=== PATIENT | female | born 1985 | race Caucasian/White ===

== ENCOUNTER → 2018-01-04 13:13 | Outpatient (REF) | payer OTHER, MEDICAID, SELFPAY | LOC: LAB 13:13 | PROVIDERS: Visit Provider Family Medicine | DX: Z34.90 Encounter for supervision of normal pregnancy, unspecified, unspecified trimester (principal) | CPT/HCPCS: 87081; 87147 ==

== ENCOUNTER 2018-02-02 09:11 | Outpatient (CLI) | payer OTHER, MEDICAID, SELFPAY ==
--- NOTE | 2018-02-02 | DI.US.S_ITS ---
PROCEDURE: US OB LIMITED INDICATIONS: POST DATES; RUPALI, EFW OUTSIDE/PRIOR DATING DATA: Last menstrual period (LMP): 04/25/2017. LMP-based estimated date of delivery ([place]): 01/30/2018. First dating scan (date and location): 10/08/2017. Estimated date of delivery ([place]) from first dating scan: 01/30/20. TECHNIQUE: Real-time scanning was performed of the fetus, with image documentation. Endovaginal scanning: Not performed COMPARISON: [facility], , OB COMPLETE 14WKS OR MORE, 10/08/2017, 16:12. FINDINGS: A single living intrauterine gestation is present. Presentation: Vertex Placenta: Placental position is anterior, without previa. Amniotic fluid index: 12 .7 cm, normal range is 5-24 cm. heart rate: 124 beats per minute. Maternal cervical canal: Poorly seen Estimated gestational age from initial scan: 40 weeks and 4 days. Estimated gestational age from today's scan: 30 weeks and 0 days Estimated weight: 3476 g (30 percentile]. IMPRESSION: Single intrauterine gestation with estimated gestational age of 40 weeks and 4 days from the initial dating ultrasound. Dictated by: Neptali Hernández M.D. on 02/02/2018 at 10:11 Approved by: Neptali Hernández M.D. on 02/02/2018 at 10:14
== END 2018-02-02 10:00 | disposition home or self-care (01) ==
LOC: LABOR 09:19 → OB 16:39
PROVIDERS: PCP Family Medicine; Visit Provider Family Medicine
DX: Z34.03 Encounter for supervision of normal first pregnancy, third trimester (principal); Z3A.40 40 weeks gestation of pregnancy
CPT/HCPCS: 59025; 76815; G0378; G0379

== ENCOUNTER 2018-02-07 12:55 | Outpatient (CLI) | payer OTHER, MEDICAID, SELFPAY | END 2018-02-07 13:49 | disposition home or self-care (01) | LOC: OB 14:42 | PROVIDERS: PCP Family Medicine; Visit Provider Family Medicine | DX: Z36.9 Encounter for antenatal screening, unspecified (principal) | CPT/HCPCS: 59025; G0378; G0379 ==

== ENCOUNTER 2018-02-08 18:14 | Inpatient (IN) | payer OTHER, MEDICAID, SELFPAY ==
[2018-02-08 19:05] LABS: Urine Amphetamines Negative (Negative); Urine Barbiturates Negative (Negative); Urine Benzodiazepines Negative (Negative); Urine Cocaine Negative (Negative); Urine MDMA Negative (Negative); Urine Methadone Negative (Negative); Urine Methamphetamines Positive (Negative); Urine Morphine/Opi cutoff 2000 Negative (Negative); Urine Oxycodone Negative (Negative); Urine Phencyclidine Negative (Negative); Urine Tetrahydrocannabinol Negative (Negative); Urine Tricyclic Antidepressant Negative (Negative)
[2018-02-08] MEDS: miSOPROStol 25 MCG TABLET VAG (20:10)
[2018-02-08 20:25] LABS: Add Manual Diff / Slide Review NO; Basophils Percent Auto 0.4 % (0-2); Eosinophils Percent Auto 0.7 % (2-4); Hematocrit 35.7 % (36-46); Hemoglobin 12.5 g/dL (12.0-16.0); Lymphocytes Percent Auto 17.5 % (25-40); Mean Corpuscular HGB Conc 34.9 % (30-36); Mean Corpuscular Hemoglobin 30.9 PG (26-34); Mean Corpuscular Volume 88.6 fL (80-100); Monocytes Percent Auto 6.7 % (3-14); Neutrophils Absolute Auto 6400 /uL (3000-5900); Neutrophils Percent Auto 74.7 % (50-75); Platelet Count 166 X10^3/uL (150-400); Red Blood Cell Count 4.03 X10^6/uL (4.0-5.2); Red Cell Distribution Width 15.1 % (11.6-14.8); White Blood Cell Count 8.6 X10^3/uL (4.5-11.0)
[2018-02-08 21:42] LABS: Urine Amphetamines Negative (Negative); Urine Cocaine Negative (Negative); Urine Morphine/Opi cutoff 2000 Negative (Negative); Urine Tetrahydrocannabinol Negative (Negative)
[2018-02-08 21:43] LABS: Urine Barbiturates Negative (Negative); Urine Benzodiazepines Negative (Negative); Urine MDMA Negative (Negative); Urine Methadone Negative (Negative); Urine Methamphetamines Negative (Negative); Urine Oxycodone Negative (Negative); Urine Phencyclidine Negative (Negative); Urine Tricyclic Antidepressant Negative (Negative)
[2018-02-08] MEDS: ZOLPIDEM 5 MG TABLET PO (22:14)
[2018-02-09] MEDS: miSOPROStol 25 MCG TABLET VAG (00:33)
[2018-02-09] MEDS: OXYTOCIN PREMIX 30 UNIT/500 ML PLAST..BAG IV (08:32)
[2018-02-09] MEDS: LACTATED RINGERS 1,000 ML 125 ML IV ×2 (08:32→14:09)
[2018-02-09] MEDS: PENICILLIN G POTASSIUM 5,000,000 UNIT in DEXTROSE 5% IN WATER 250 ML IV (08:32)
--- NOTE | 2018-02-09 08:54 | PM.OBHP.1 ---
OB HPI Date/Time Date of admission: 02/09/18 Date Patient Seen: 02/09/18 Time Patient Seen: 08:54 History of Present Illness Chief complaint: evaluation of labor : 1 Para: 0 Estimated Date of Delivery: 01/30/18 Estimated Gestational Age (weeks): 41 3/e Narrative: Maribel Reynolds is a 32 year old female with EDC of 01/30/[address] Pozo who presents for induction. Patient was brought in last night for Cytotec. Overall has been unremarkable. She transferred care at 22 weeks from [place]. She has long history of anxiety and benzodiazepine addiction. Labor was uncomplicated but she did have a positive narcotics drug screen. [place] to be secondary to Poppy seeds. Was repeated and found to be negative. Patient denies any drug use during this . Has felt very strong about her recovery. Does not have any other complaints. Baby has been active and moving. No leaking fluid no bleeding no pain. Cytotec was placed last night and she has been having contractions. She was closed and is now 2 cm. No other significant change or complaint. Patient had drug screen done yesterday which was initially positive for methamphetamine. Patient denies is actively. Her repeat drug screen was negative. Patient otherwise has felt well. Emotionally doing well. Has had no problems or complaints during this . Estimated weight is 7 lb 11 oz by ultrasound. With Evaluation Evaluation Laboratory results: Laboratory Tests 02/08/18 02/08/18 02/08/18 18:30 20:10 20:10 WBC 8.6 RBC 4.03 Hgb 12.5 Hct 35.7 L MCV 88.6 MCH 30.9 MCHC 34.9 RDW 15.1 H Plt Count 166 Neut % (Auto) 74.7 Lymph % (Auto) 17.5 L [place] % (Auto) 6.7 Eos % (Auto) 0.7 L Baso % (Auto) 0.4 Neut # (Auto) 6400 H Urine Opiates Screen Negative Ur Oxycodone Screen Negative Urine Methadone Screen Negative Ur Barbiturates Screen Negative U Tricyclic Antidepress Negative Ur Phencyclidine Scrn Negative Ur Amphetamines Screen Negative U Methamphetamines Scrn Positive H Ur MDMA Scrn (Ecstasy) Negative U Benzodiazepines Scrn Negative Urine Cocaine Screen Negative U Marijuana (THC) Screen Negative Blood Type O Positive Antibody Screen Negative 02/08/18 20:55 WBC RBC Hgb Hct MCV MCH MCHC RDW Plt Count Neut % (Auto) Lymph % (Auto) [place] % (Auto) Eos % (Auto) Baso % (Auto) Neut # (Auto) Urine Opiates Screen Negative Ur Oxycodone Screen Negative Urine Methadone Screen Negative Ur Barbiturates Screen Negative U Tricyclic Antidepress Negative Ur Phencyclidine Scrn Negative Ur Amphetamines Screen Negative U Methamphetamines Scrn Negative Ur MDMA Scrn (Ecstasy) Negative U Benzodiazepines Scrn Negative Urine Cocaine Screen Negative U Marijuana (THC) Screen Negative Blood Type Antibody Screen [facility] Medical History Anxiety (Acute) Benzodiazepine abuse (Acute) Comment: . Good social support. Denies drug use Meds Home Medications Medication Instructions Recorded Confirmed Type Iron (ferrous sulfate) 1 tab PO DAILY 02/08/18 02/08/18 History PNV #[id number] 1 tab PO DAILY 02/08/18 02/08/18 History ranitidine HCl [Zantac 75] 1 tab PO DAILY 02/08/18 02/08/18 History Allergies Allergy/AdvReac Type Severity Reaction Status Date / Time Naproxen Allergy Mild RASH Uncoded 10/27/17 12:59 Exam Vital Signs (past 8 hours): Alert female in no acute distress. Lungs are clear. Heart regular rate and rhythm. Abdomen is gravid vertex intact. Sterile vaginal exam +1 vertex 2 cm 60% intact extremities without cyanosis clubbing edema Objective Labs Result Diagrams: 02/08/18 20:10 Labs: Laboratory Results - last 24 hr 02/08/18 02/08/18 02/08/18 18:30 20:10 20:10 WBC 8.6 RBC 4.03 Hgb 12.5 Hct 35.7 L MCV 88.6 MCH 30.9 MCHC 34.9 RDW 15.1 H Plt Count 166 Neut % (Auto) 74.7 Lymph % (Auto) 17.5 L [place] % (Auto) 6.7 Eos % (Auto) 0.7 L Baso % (Auto) 0.4 Neut # (Auto) 6400 H Urine Opiates Screen Negative Ur Oxycodone Screen Negative Urine Methadone Screen Negative Ur Barbiturates Screen Negative U Tricyclic Antidepress Negative Ur Phencyclidine Scrn Negative Ur Amphetamines Screen Negative U Methamphetamines Scrn Positive H Ur MDMA Scrn (Ecstasy) Negative U Benzodiazepines Scrn Negative Urine Cocaine Screen Negative U Marijuana (THC) Screen Negative Blood Type O Positive Antibody Screen Negative 02/08/18 20:55 WBC RBC Hgb Hct MCV MCH MCHC RDW Plt Count Neut % (Auto) Lymph % (Auto) [place] % (Auto) Eos % (Auto) Baso % (Auto) Neut # (Auto) Urine Opiates Screen Negative Ur Oxycodone Screen Negative Urine Methadone Screen Negative Ur Barbiturates Screen Negative U Tricyclic Antidepress Negative Ur Phencyclidine Scrn Negative Ur Amphetamines Screen Negative U Methamphetamines Scrn Negative Ur MDMA Scrn (Ecstasy) Negative U Benzodiazepines Scrn Negative Urine Cocaine Screen Negative U Marijuana (THC) Screen Negative Blood Type Antibody Screen Assessment and Plan Plan: Plan: Patient will be admitted and followed. Will try to rupture Pitocin. If unable to get into labor will stop and re-evaluate. Question on drug abuse patient actively denies. Second urine was negative. At this point I do not believe she was actively using but will need to follow. Will consider meconium evaluation for drugs of abuse after . Currently baby looks good. And we seemed to be doing okay. Epidural if needed will follow.
--- NOTE | 2018-02-09 09:01 | P.HPOB_ITS ---
OB HPI Date/Time Date of admission: 02/09/18 Date Patient Seen: 02/09/18 Time Patient Seen: 08:54 History of Present Illness Chief complaint: evaluation of labor : 1 Para: 0 Estimated Date of Delivery: 01/30/18 Estimated Gestational Age (weeks): 41 3/e Narrative: Maribel Reynolds is a 32 year old female with EDC of 01/30/[address] Pozo who presents for induction. Patient was brought in last night for Cytotec. Overall has been unremarkable. She transferred care at 22 weeks from [place]. She has long history of anxiety and benzodiazepine addiction. Labor was uncomplicated but she did have a positive narcotics drug screen. [place] to be secondary to Poppy seeds. Was repeated and found to be negative. Patient denies any drug use during this . Has felt very strong about her recovery. Does not have any other complaints. Baby has been active and moving. No leaking fluid no bleeding no pain. Cytotec was placed last night and she has been having contractions. She was closed and is now 2 cm. No other significant change or complaint. Patient had drug screen done yesterday which was initially positive for methamphetamine. Patient denies is actively. Her repeat drug screen was negative. Patient otherwise has felt well. Emotionally doing well. Has had no problems or complaints during this . Estimated weight is 7 lb 11 oz by ultrasound. With Evaluation Evaluation Laboratory results: Laboratory Tests 02/08/18 02/08/18 02/08/18 18:30 20:10 20:10 WBC 8.6 RBC 4.03 Hgb 12.5 Hct 35.7 L MCV 88.6 MCH 30.9 MCHC 34.9 RDW 15.1 H Plt Count 166 Neut % (Auto) 74.7 Lymph % (Auto) 17.5 L [place] % (Auto) 6.7 Eos % (Auto) 0.7 L Baso % (Auto) 0.4 Neut # (Auto) 6400 H Urine Opiates Screen Negative Ur Oxycodone Screen Negative Urine Methadone Screen Negative Ur Barbiturates Screen Negative U Tricyclic Antidepress Negative Ur Phencyclidine Scrn Negative Ur Amphetamines Screen Negative U Methamphetamines Scrn Positive H Ur MDMA Scrn (Ecstasy) Negative U Benzodiazepines Scrn Negative Urine Cocaine Screen Negative U Marijuana (THC) Screen Negative Blood Type O Positive Antibody Screen Negative 02/08/18 20:55 WBC RBC Hgb Hct MCV MCH MCHC RDW Plt Count Neut % (Auto) Lymph % (Auto) [place] % (Auto) Eos % (Auto) Baso % (Auto) Neut # (Auto) Urine Opiates Screen Negative Ur Oxycodone Screen Negative Urine Methadone Screen Negative Ur Barbiturates Screen Negative U Tricyclic Antidepress Negative Ur Phencyclidine Scrn Negative Ur Amphetamines Screen Negative U Methamphetamines Scrn Negative Ur MDMA Scrn (Ecstasy) Negative U Benzodiazepines Scrn Negative Urine Cocaine Screen Negative U Marijuana (THC) Screen Negative Blood Type Antibody Screen [facility] Medical History Anxiety (Acute) Benzodiazepine abuse (Acute) Comment: . Good social support. Denies drug use Meds Home Medications Medication Instructions Recorded Confirmed Type Iron (ferrous sulfate) 1 tab PO DAILY 02/08/18 02/08/18 History PNV #[id number] [id number] 1 tab PO DAILY 02/08/18 02/08/18 History ranitidine HCl [Zantac 75] 1 tab PO DAILY 02/08/18 02/08/18 History Allergies Allergy/AdvReac Type Severity Reaction Status Date / Time Naproxen Allergy Mild RASH Uncoded 10/27/17 12:59 Exam Vital Signs (past 8 hours): Alert female in no acute distress. Lungs are clear. Heart regular rate and rhythm. Abdomen is gravid vertex intact. Sterile vaginal exam + 1 vertex 2 cm 60% intact extremities without cyanosis clubbing edema Objective Labs Result Diagrams: 02/08/18 20:10 Labs: Laboratory Results - last 24 hr 02/08/18 02/08/18 02/08/18 18:30 20:10 20:10 WBC 8.6 RBC 4.03 Hgb 12.5 Hct 35.7 L MCV 88.6 MCH 30.9 MCHC 34.9 RDW 15.1 H Plt Count 166 Neut % (Auto) 74.7 Lymph % (Auto) 17.5 L [place] % (Auto) 6.7 Eos % (Auto) 0.7 L Baso % (Auto) 0.4 Neut # (Auto) 6400 H Urine Opiates Screen Negative Ur Oxycodone Screen Negative Urine Methadone Screen Negative Ur Barbiturates Screen Negative U Tricyclic Antidepress Negative Ur Phencyclidine Scrn Negative Ur Amphetamines Screen Negative U Methamphetamines Scrn Positive H Ur MDMA Scrn (Ecstasy) Negative U Benzodiazepines Scrn Negative Urine Cocaine Screen Negative U Marijuana (THC) Screen Negative Blood Type O Positive Antibody Screen Negative 02/08/18 20:55 WBC RBC Hgb Hct MCV MCH MCHC RDW Plt Count Neut % (Auto) Lymph % (Auto) [place] % (Auto) Eos % (Auto) Baso % (Auto) Neut # (Auto) Urine Opiates Screen Negative Ur Oxycodone Screen Negative Urine Methadone Screen Negative Ur Barbiturates Screen Negative U Tricyclic Antidepress Negative Ur Phencyclidine Scrn Negative Ur Amphetamines Screen Negative U Methamphetamines Scrn Negative Ur MDMA Scrn (Ecstasy) Negative U Benzodiazepines Scrn Negative Urine Cocaine Screen Negative U Marijuana (THC) Screen Negative Blood Type Antibody Screen Assessment and Plan Plan: Plan: Patient will be admitted and followed. Will try to rupture Pitocin. If unable to get into labor will stop and re-evaluate. Question on drug abuse patient actively denies. Second urine was negative. At this point I do not believe she was actively using but will need to follow. Will consider meconium evaluation for drugs of abuse after . Currently baby looks good. And we seemed to be doing okay. Epidural if needed will follow.
--- NOTE | 2018-02-09 09:09 | PM.OBPNLAB ---
Date/Time Date Patient Seen: 02/09/18 Time Patient Seen: 09:09 Pain Control Pain control: tolerating well Comments: Patient doing well no complaints Pelvic Exam Dilation (cm): 2 Effacement (%): 70 station: 0 Amniotic membrane status: Ruptured Comments: Ruptured with leaking fluid clear Contractions Contraction pattern: Regular Contraction intensity: Moderate Status status: Category l Assessment and Plan Assessment: induction ongoing Plan: continuous present management
[2018-02-09 09:46] VITALS: BP 107/55
[2018-02-09] MEDS: PENICILLIN G POTASSIUM 3,000,000 UNIT/50 ML FROZ.PIGGY 100 UNIT IV ×3 (12:05→20:12)
--- NOTE | 2018-02-09 13:25 | P.PNOB_ITS ---
Date/Time Date Patient Seen: 02/09/18 Time Patient Seen: 13:22 Pain Control Comments: Patient has overall been having increasing pain. Last 10 min or so. Had been previously doing well. Pelvic Exam Dilation (cm): 3 Effacement (%): 80 station: 0 Contractions Pitocin rate (mU/min): 9 Contraction frequency (min): 2 Contraction pattern: Regular Contraction intensity: Moderate Status status: Category l Assessment and Plan Assessment: induction ongoing Plan: continuous present management Comments: The patient was ruptured. On antibiotics. Antibiotics were started an hour before rupture happened. Clear fluid. Seems to be coming more active still in latent phase. Will continue IV therapy. heart monitor is reactive and category 1. Requesting epidural. Anesthesia contacted. Re- evaluate in 2-4 hours.
--- NOTE | 2018-02-09 16:53 | PM.OBPNLAB ---
Date/Time Date Patient Seen: 02/09/18 Time Patient Seen: 16:53 Pain Control Pain control: epidural Comments: Excellent Pelvic Exam Dilation (cm): 4 Effacement (%): 80 station: 0 Amniotic membrane status: Ruptured Contractions Contraction frequency (min): 2 Contraction pattern: Irregular Contraction intensity: Moderate Status status: Category l Assessment and Plan Assessment: induction ongoing Comments: Difficulty picking up the contractions. Patient is comfortable after epidural. IUPC placed. heart monitor looks good. Slow change. Continue duction. Continue antibiotics.
--- NOTE | 2018-02-09 23:30 | PM.OBPNLAB ---
Date/Time Date Patient Seen: 02/09/18 Time Patient Seen: 23:30 Pain Control Pain control: epidural Pelvic Exam Dilation (cm): 10 Effacement (%): 100 station: +2 Contractions Contraction frequency (min): 2 Contraction pattern: Irregular Contraction intensity: Moderate Status status: Category l Assessment and Plan Assessment: active labor Comments: For stage complete. heart monitor has been reactive. Continuing antibiotics. No fever. Overall doing well. For vaginal delivery.
--- NOTE | 2018-02-10 00:42 | PM.NBHP.1 ---
History History Child is a product of a 41 and 3 7 week intrauterine which was uncomplicated. She transferred care at 22 weeks. Had a positive drug screen for narcotics which was felt to be secondary to Poppy seeds. Had it repeated which was negative. Patient had no other complications during the . On presentation might had a positive drug screen for meth although this was repeated and found to be negative. The unclear if this was positive or not. Mom was GBS positive and began on antibiotics. She was ruptured approximately 15 hr. Did not have fever. Otherwise labor was uncomplicated. Child required no resuscitation. No major issues and seems to be well. Social history mother and father . Have good social support here Mother was with some history of anxiety. She had been doing well. Had a history of benzodiazepine use prior to . Time of : 00:04 Gestation: postterm Multiple fetuses: No Mode of delivery: vaginal score (1 min): 8 score (5 min): 9 Complications with delivery: No Nursery Course Maternal RH factor: positive Infant blood type: O Infant RH factor: unknown Direct supriya: unknown Post delivery complications: Reports none Screening screen labs drawn: no Hepatitis B vaccine given: no Exam - Pediatric Vital Signs BP 107/55 L 02/09/18 09:46 General Appearance well appearing Constitutional normal weight HEENT Head: normocephalic and molding Anterior fontanelle: soft Eyes: EOM normal Pupils: bilateral: other (Positive red reflux) Ears Canals: bilateral: extruded PET Nose Nasal mucosa: normal Mouth Lips: normal Oral mucosa: erythematous Tonsils: other (Normal palate no evidence of tongue tie) Additional Exam Additional findings: Neck is supple. No adenopathy. Lungs are clear. Heart's regular rate and rhythm without murmur. Abdomen is soft positive bowel sounds three-vessel cord. No masses or tenderness. Normal genitalia. Normal extremities. Skin is without rash normal capillary refill Objective Labs Result Diagrams: 02/08/18 20:10 Assessment & Plan Plan: Assessment/Plan Narrative: Normal female . Will watch closely for any possible signs of withdrawal. Will check the meconium drug screen but my feeling is that this is probably low risk. Will watch over the next 24 hr routine care otherwise and follow from there.
--- NOTE | 2018-02-10 00:56 | P.PCNOB_ITS ---
Events: Labor Induction Delivery date: 02/10/18 Laceration description: Vaginal - 2nd Degree Delivery repair: vicryl and chromic Estimated blood loss (mL): 300 Anesthesia type: Epidural Complications: None Narrative: Mother was brought in for induction for post dates at 41 and 3 7 weeks. Due to her history abnormal drug screen early in she had a drug screen done which was positive for meth. Patient denies any use repeat urine was negative. Cytotec x2 was given and cervix went to 2 cm. She was 0+ 1 and 70%. After antibiotic was started due to her GBS status she was ruptured with clear fluid. heart monitor throughout all of her stage was category 1. Pitocin was began. Patient made slow change. Had difficulty monitoring contractions and at 3 cm and IUPC was placed. Excellent results. Pitocin was then continued. She slowly over time continued to dilate some more around 2 o' clock she had her epidural placed with excellent results. No further issues and for stage were undertaken patient had relatively rapid 2nd stage with 1 hr of pushing. IUPC and [place] was removed. She delivered vaginal and SCD 0 a over 2nd degree midline tear and periurethral tear superior. No nuchal cord. No shoulder dystocia. Child was delivered with head and bulb suctioned. Shoulder was then delivered and the rest of the baby came easily up onto mom's abdomen. Cord clamped and then cut by father. Cord bloods were obtained. Placenta delivered spontaneous and thyroid 3 vessels. Periurethral tear was repaired with running 4 0 Vicryl subcuticular. Bleeding had stopped. There had been a small vein at the superior aspect which appeared completely resolved. Vaginal mucosa and cervix were evaluated and found to have no tears. Second-degree was repaired with 3 0 Vicryl in usual manner running manner. Mother tolerated well. No anesthesia was required other than epidural. No resuscitation of was required. EBL was 300 cc. Mother and infant were in stable condition.
[2018-02-10] MEDS: PRENATAL VIT,CALC/IRON/FOLIC 1 TABLET 1 TAB PO (10:09)
[2018-02-10] MEDS: DOCUSATE 250 MG CAPSULE PO (10:09)
[2018-02-10] MEDS: IBUPROFEN 600 MG TABLET PO ×2 (10:12→18:37)
[2018-02-11] MEDS: IBUPROFEN 600 MG TABLET PO ×3 (00:54→20:25)
[2018-02-11] MEDS: PRENATAL VIT,CALC/IRON/FOLIC 1 TABLET 1 TAB PO (09:42)
[2018-02-11] MEDS: DOCUSATE 250 MG CAPSULE PO (09:42)
--- NOTE | 2018-02-11 17:46 | PM.CN ---
History of Present Illness Chief complaint: evaluation of labor Reason for consult: Evaluation of mood & anxiety Requesting provider: Rene Mckeon Narrative: CC: ?I?m managing? HOSPITAL COURSE: 32yo F, G1 now P1, admitted 02/09/18 for induction at 41 3/7 wks; vaginal delivery on 02/10/18, no major complications during labor & delivery. is healthy; 8, 9; initial exam WNL. Patient established OB care at 22 weeks, had a positive drug screen for no contacts which was felt to be secondary to Poppy seeds, negative on repeat. Drug screen on admission for induction was positive for meth although repeat was negative. She has denied any substance use. [place] had drug screen, initial was negative and full screen is still pending. COLLATERAL FROM STAFF: Some difficulty and discouragement around this INTERVIEW: I met with patient Maribel and her Ryan. Maribel reports that she is managing ok. She introduces me to her baby girl Noni. She reports some discouragement around breast-feeding, but overall feels that things are going okay so far since delivery. She describes a history of anxiety that can be fairly severe at times. She states she was taking clonazepam for eight years, and that it worked but it became too much of a problem for her. She states she moved several times during this period, and each time she had established with a new provider and went through withdrawal if she missed medications, states that she ultimately felt it was more trouble than it was worth. States that she has been off clonazepam for about a year and a half, stopped prior to . She describes some anxiety during , but states it has been manageable. She has not taken medication for anxiety depression during . She reports a history of depression, severe at times, treated starting in her teenage years. States that medications were helpful at times. She remembers being on Prozac initially as a teen, her parents saying it was helpful. She remembers Wellbutrin being helpful for mood. She notes she has been on Zoloft in the past but does not remember specifics. She has not been on any of these medications lately. No psychotherapy currently, has done some in the past. She denies feeling depressed now. She denies any thoughts about ending her life today, and denies any thoughts about hurting her baby or ending her baby's life. Sleep has been intermittent since delivery, and somewhat irregular with the end of . We discussed the importance of sleep in mood and anxiety. She denies any problematic substance use. She denies any substance use during the . She reports there have been times that she drink more when feeling depressed, but denies this becoming a problem, denies needing treatment for alcohol use or any other substance use. We discussed medications that can be safe in breast-feeding including Zoloft, and that she is active increased risk of depression given her history of depression. We reviewed resources and support for this as outlined above plan below. Both she and her ask insightful questions about treatment, and express appreciation for this information. [facility] Medical History Anxiety (Acute) Benzodiazepine abuse (Acute) Social History Smoking Status: Former smoker Comment: PAST PSYCHIATRIC HISTORY: Inpt: denies Med trials: Prozac, Wellbutrin, Zoloft, clonazepam ?I?ve been on a lot? SUBSTANCE USE HISTORY: Denies active substance use, denies history of substance abuse or dependence to this provider FAMILY HISTORY: Paternal grandmother with mental health issues but not sure of specific diagnosis, no clear family history of bipolar disorder that she is aware of. No family history of depression or psychosis that she knows of. SOCIAL HISTORY: , primary care provider reports good social support DEVELOPMENTAL HISTORY: PCP: Dr. Pozo SIGNIFICANT MEDICAL HISTORY: Anxiety, benzodiazepine abuse Meds Home Medications Medication Instructions Recorded Confirmed Type Iron (ferrous sulfate) 1 tab PO DAILY 02/08/18 02/08/18 History PNV #[id number] acid-omega3 1 tab PO DAILY 02/08/18 02/08/18 History ranitidine HCl [Zantac 75] 1 tab PO DAILY 02/08/18 02/08/18 History Allergies Allergy/AdvReac Type Severity Reaction Status Date / Time Naproxen Allergy Mild RASH Uncoded 10/27/17 12:59 Review of Systems Constitutional Constitutional: Reports difficulty sleeping and Reports fatigue Eyes Eyes: Denies change in vision ENT Ears, Nose, Mouth, and Throat: No dizziness Cardiovascular Cardiovascular: Denies irregular heart rhythm and Denies shortness of breath Respiratory Respiratory: Denies dyspnea Neurologic Neurologic: Denies behavioral changes and Denies dizziness Psychiatric Psychiatric: Reports as per HPI and Denies behavioral changes Endocrine Endocrine: Reports fatigue Exam Narrative Exam Narrative: MENTAL STATUS EXAM: Appearance: Young female, dark hair, wearing hospital gown, hair pulled back Behavior: Sitting up in bed, calm, cooperative, good eye contact, no psychomotor slowing or agitation Speech: Normal rate, volume, prosody Mood: ?Okay? Affect: Congruent, euthymic, normal range and reactivity Thought process: Linear, logical, goal-directed Thought content: Denies SI, denies HI, denies AVH, no evidence of paranoia or delusions Memory: Intact to interview for recent and remote events, not formally tested Attention: Attentive to interview Insight: Fair Judgment: Fair Objective Labs Result Diagrams: 02/11/18 17:15 Labs: Laboratory Results - last 24 hr 02/11/18 17:15 Hgb 10.0 L Hct 29.0 L Assessment & Plan Plan: Assessment/Plan Narrative: ASSESSMENT: Maribel Reynolds is a 32-year-old female with history of significant depression and anxiety, G1 now P1 with vaginal delivery of a healthy baby girl on 02/10/2018. Consult is requested for evaluation of mood stability in the period. On interview with patient today, I do not see concerning signs or symptoms for severe mood or anxiety issues at this time. She is at elevated risk for depression given her history of depression and anxiety, and we discussed this openly today. I do not see evidence of active substance use, however, intermittent positive urine drug screens raise some concern for this. If the and drug screens are all negative, I think that continuing to monitor for any concerning signs of this is reasonable especially during the period. DIAGNOSES: anxiety Major depressive disorder in remission rule out substance abuse RECOMMENDATIONS: -Junior Depression Scale at visit for screening -Engage in support as you are doing -Consider sertraline if medication is needed to address significant depression or anxiety in the period -Provided patient with information for warm line, [email or web address]; & reviewed how this works -Provided my card for contact information in case of questions or need to schedule Thank you for involving me in this patient's care. I am happy to provide additional consultation to her primary care providers as needed, and they have my contact information. I will not continue to follow her in the hospital, and suspect she will be discharged before I am back on Wednesday.
--- NOTE | 2018-02-11 18:25 | PM.OBPN.1 ---
Subjective - OB Interval history: A mostly struggling today. Frustrated with breast-feeding. Getting increasingly anxious. No other changes. Minimal bleeding. Minimal pain. No other changes. Date Patient Seen: 02/11/18 Time Patient Seen: 18:26 Exam Vital Signs (past 8 hours): Alert female intermittently crying in no acute distress. Lungs are clear. Heart's regular rate and rhythm. Abdomen is soft positive bowel sounds she uterus is firm. Objective Labs Result Diagrams: 02/11/18 17:15 Labs: Laboratory Results - last 24 hr 02/11/18 17:15 Hgb 10.0 L Hct 29.0 L Assessment & Plan Plan Comments: Patient overall having some difficulty on day 2. With her history anxiety but no evidence of depression have decided to consult Psychiatry to make sure were not missing something significant. Appreciate Dr. Haider is input. We continue to work on pumping and breast-feeding. No evidence of withdrawal or other concerns. Recheck a.m.. Possible discharge. Time Spent With Patient Total time spent is greater than 50% in coordination of care (as documented) at patient's floor/unit and/or counseling patient: 25 - 35 minutes
--- NOTE | 2018-02-12 10:26 | PM.OBDS.1 ---
Discharge Providers Date of admission: 02/08/18 18:14 Primary care physician: Roz Pozo MD Consults: 02/10/18 00:40 Consult to Automation And Controls Instructor Routine Comment: 02/11/18 13:26 Consult to Physician Routine Comment: Consulting Provider: Rosalia Haider Reason for consultation: anxiety Has provider been notified: Yes Discharge provider: Rene Mckeon MD Summary Date Patient Seen: 02/12/18 Time Patient Seen: 10:27 Peripartum Data Delivery Method: Natural Vaginal Laceration description: Perineal - 2nd Degree Procedures: Normal spontaneous vaginal delivery, induction for post dates, Cytotec and Pitocin Urine drug screen complications: none Status at Discharge Cognitive/behavioral status at discharge: Patient is anxious but otherwise doing well. Patient did have psychiatric evaluation yesterday found that she was doing well with no other significant changes. Patient has had a negative drug screen and otherwise has been stable Patient overall has been doing well. Minimal bleeding. Frustrated with breast-feeding. Breast consultants were consulted. Hematocrit was stable. Had been on iron and will continue. Mostly seems to be doing well. No evidence of withdrawal or other changes. Will need to follow up as an outpatient. Patient will be going home in a stable environment. No other changes. Functional status at discharge: independent ambulation Time Spent with Patient Total time spent providing and/or coordinating discharge services: Greater than 30 minutes Objective Labs Result Diagrams: 02/11/18 17:15 Labs: Laboratory Results - last 24 hr 02/11/18 17:15 Hgb 10.0 L Hct 29.0 L Discharge Plan Discharge Plan Patient Disposition: Home, Self-Care Discharge Med Rec/Prescriptions Prescriptions: New ibuprofen 600 mg Tablet 600 mg PO Q6HR PRN (Reason: Pain, Mild (1-3)) Qty: 90 RF: 1 docusate sodium 250 mg Capsule 250 mg PO DAILY Qty: 60 RF: 1 Continue ranitidine HCl [Zantac 75] 75 mg Tablet 1 tab PO DAILY RF: 0 Iron (ferrous sulfate) 324 mg 1 tab PO DAILY RF: 0 PNV #[id number] acid-omega3 1 tab PO DAILY RF: 0 Follow up/Referrals: Roz Pozo MD [Primary Care Provider] - 6 Weeks Provider Discharge Instructions Diet: Diet as Tolerated Diet comment: As tolerated Activity: No sexual activity for 6 weeks. Slow increase in activity. As tolerated. Wound Care Other wound treatment: Daily cleaning of the perineal area. Call if increasing pain or other changes. Discharge Data Primary Care Provider: Roz Pozo Attending Provider: Rene Mckeon Admit Date/Time: 02/08/18 18:14
--- NOTE | 2018-02-12 10:30 | P.DS_ITS ---
Discharge Providers Date of admission: 02/08/18 18:14 Primary care physician: Roz Pozo MD Consults: 02/10/18 00:[address] Cutter Routine Comment: 02/11/18 13:26 Consult to Physician Routine Comment: Consulting Provider: Rosalia Haider Reason for consultation: anxiety Has provider been notified: Yes Discharge provider: Rene Mckeon MD Summary Date Patient Seen: 02/12/18 Time Patient Seen: 10:27 Peripartum Data Delivery Method: Natural Vaginal Laceration description: Perineal - 2nd Degree Procedures: Normal spontaneous vaginal delivery, induction for post dates, Cytotec and Pitocin Urine drug screen complications: none Status at Discharge Cognitive/behavioral status at discharge: Patient is anxious but otherwise doing well. Patient did have psychiatric evaluation yesterday found that she was doing well with no other significant changes. Patient has had a negative drug screen and otherwise has been stable Patient overall has been doing well. Minimal bleeding. Frustrated with breast- feeding. Breast consultants were consulted. Hematocrit was stable. Had been on iron and will continue. Mostly seems to be doing well. No evidence of withdrawal or other changes. Will need to follow up as an outpatient. Patient will be going home in a stable environment. No other changes. Functional status at discharge: independent ambulation Time Spent with Patient Total time spent providing and/or coordinating discharge services: Greater than 30 minutes Objective Labs Result Diagrams: 02/11/18 17:15 Labs: Laboratory Results - last 24 hr 02/11/18 17:15 Hgb 10.0 L Hct 29.0 L Discharge Plan Discharge Plan Patient Disposition: Home, Self-Care Discharge Med Rec/Prescriptions Prescriptions: New ibuprofen 600 mg Tablet 600 mg PO Q6HR PRN (Reason: Pain, Mild (1-3)) Qty: 90 RF: 1 docusate sodium 250 mg Capsule 250 mg PO DAILY Qty: 60 RF: 1 Continue ranitidine HCl [Zantac 75] 75 mg Tablet 1 tab PO DAILY RF: 0 Iron (ferrous sulfate) 324 mg 1 tab PO DAILY RF: 0 PNV #[id number] acid-omega3 1 tab PO DAILY RF: 0 Follow up/Referrals: Roz Pozo MD [Primary Care Provider] - 6 Weeks Provider Discharge Instructions Diet: Diet as Tolerated Diet comment: As tolerated Activity: No sexual activity for 6 weeks. Slow increase in activity. As tolerated. Wound Care Other wound treatment: Daily cleaning of the perineal area. Call if increasing pain or other changes. Discharge Data Primary Care Provider: Roz Pozo Attending Provider: Rene Mckeon Admit Date/Time: 02/08/18 18:14
[2018-02-12 10:32] VITALS: BP 116/79; PULSE 101; RESP 16; TEMP 36.8
== END 2018-02-12 12:30 | disposition home or self-care (01) | DRG 560 ==
PROVIDERS: Admitting Provider Family Medicine; PCP Family Medicine; Visit Provider Family Medicine
DX: O48.0 Post-term pregnancy (principal); Z3A.41 41 weeks gestation of pregnancy; Z37.0 Single live birth; O70.1 Second degree perineal laceration during delivery; O99.824 Streptococcus B carrier state complicating childbirth; F41.9 Anxiety disorder, unspecified; O99.344 Other mental disorders complicating childbirth
CPT/HCPCS: 01967; 36415; 59025; 59050; 59200; 80305; 85014; 85018; 85025; 86850; 86900; 86901; 90791; G0379; J2540; J2590

== ENCOUNTER 2018-02-16 15:56 | Inpatient (IN) | payer OTHER, MEDICAID, SELFPAY ==
[2018-02-16 16:00] VITALS: BP 125/75; RESP 18; TEMP 36.4; O2SAT 98
[2018-02-16 16:09] VITALS: BMI 34.2
[2018-02-16 16:14] VITALS: BP 125/75; PULSE 97; RESP 18; TEMP 36.4
[2018-02-16 17:21] LABS: Add Manual Diff / Slide Review NO; Basophils Percent Auto 0.4 % (0-2); Eosinophils Percent Auto 0.5 % (2-4); Hematocrit 33.7 % (36-46); Hemoglobin 11.5 g/dL (12.0-16.0); Lymphocytes Percent Auto 12.6 % (25-40); Mean Corpuscular HGB Conc 34.2 % (30-36); Mean Corpuscular Hemoglobin 30.5 PG (26-34); Mean Corpuscular Volume 89.2 fL (80-100); Neutrophils Absolute Auto 7300 /uL (3000-5900); Neutrophils Percent Auto 80.5 % (50-75); Platelet Count 218 X10^3/uL (150-400); Red Blood Cell Count 3.78 X10^6/uL (4.0-5.2); Red Cell Distribution Width 14.7 % (11.6-14.8)
[2018-02-16 17:33] LABS: Alanine Aminotransferase 33 IU/L (9-52); Albumin 3.5 g/dL (3.5-5.0); Albumin Globulin Ratio 1.3 (1.0-2.8); Alkaline Phosphatase 98 U/L (38-126); Aspartate Aminotransferase 27 IU/L (14-36); BUN Creatinine Ratio 23.3 (6-22); Bilirubin Total 0.3 mg/dL (0.2-1.3); Blood Urea Nitrogen 14 mg/dL (7-17); Calcium 8.7 mg/dL (8.4-10.2); Carbon Dioxide 24 mmol/L (22-32); Chloride 105 mmol/L (98-107); Estimated Glomerular Filt Rate > 60.0 mL/min (>60); Globulin 2.8 g/dL (1.7-4.1); Glucose 81 mg/dL (70-100); HEMOLYSIS < 15 (0-50); Potassium 3.9 mmol/L (3.4-5.1); Sodium 139 mmol/L (137-145); Total Protein 6.3 g/dL (6.3-8.2)
[2018-02-16] MEDS: MORPHINE PCA 30 MG/30 ML PCA.VIAL IV ×2 (17:35→22:36)
--- NOTE | 2018-02-16 17:37 | PM.HP.1 ---
History of Present Illness Date Patient Seen: 02/16/18 Time Patient Seen: 17:37 Chief complaint: ABD PAIN Narrative: Patient admitted today for increasing abdominal pain. Patient is a 32-year-old 7 days. Delivered at 41 and 3 7 weeks induce labor. Ruptured for 15 hr. Was GBS positive. Was and did receive antibiotics. Delivery was uncomplicated. Had mild 1st degree tear periurethral and 2nd degree small vaginal tear. Otherwise no issues. Recovered well. Has been doing extremely well until recently. Yesterday she had some abdominal cramping. Today she began having increasing pain. She describes it as cramping and pretty intense in the lower quadrants. Bilateral. No discharge. No change in her bleeding. No fevers or chills. No nausea or vomiting. She has been having bowel movements and normal urine output. Patient was seen in clinic and found to have significant abdominal pain was referred here for evaluation. Past medical history is significant for anxiety. Patient has a history of benzodiazepine addiction but no other changes. Has been stable. Did not have issues during although had to abnormal drug test which were found to be negative. Child had a negative screen. Past surgical history uncomplicated. Social history. Lives with and daughter and currently in her mom and dad house. Unemployed. Denies drug or alcohol use. No tobacco use. Review of systems patient has no breast pain swelling erythema. No shortness of breath no chest pain. She has no headaches no visual symptoms. Otherwise feeling well. See review of systems Patient History Medical History Anxiety (Acute) Benzodiazepine abuse (Acute) Family & Social History Social History: household members spouse Prior Living Arrangements House Safety & Behavioral: Feels Safe in Current Yes Environment Been Physically Hurt or No Threatened By a Person Suicidal Ideation Description None Suicide Plan Description No Plan Tobacco & Substance use: Tobacco type cigarettes Smoking Status Former smoker alcohol intake current alcohol intake frequency holiday/special occasion Substance Use Type does not use Meds Home Medications Medication Instructions Recorded Confirmed Type Iron (ferrous sulfate) 1 tab PO DAILY 02/08/18 02/16/18 History PNV #63-[id number]-[id number] acid-omega3 1 tab PO DAILY 02/08/18 02/16/18 History docusate sodium 250 mg PO DAILY #60 cap 02/12/18 02/16/18 Rx ibuprofen 600 mg PO Q6HR PRN #90 tab 07/28/18 08/01/18 Rx Allergies Allergy/AdvReac Type Severity Reaction Status Date / Time Naproxen Allergy Mild RASH Uncoded 10/27/17 12:59 Review of Systems Review of Systems All systems reviewed & are unremarkable except as noted in HPI and below Exam Vital Signs (past 8 hours): - 02/16/18 16:14 Temperature 97.6 F Pulse Rate 97 H Respiratory Rate 18 Blood Pressure 125/75 H Narrative Exam Narrative: Alert mildly obese female no acute distress except with movement. Mucous membranes moist. No oral lesions. Neck is supple without adenopathy JVD or bruits. No supraclavicular adenopathy. Breasts show no tenderness. Lungs are clear. Heart regular rate and rhythm without murmurs clicks rubs or gallops. Abdomen is soft positive bowel sounds mildly distended. She has marked lower quadrant tenderness. Positive rebound. Moderate guarding. Pelvic exam shows normal labia. Actually pretty well healed. Moderate blood. She has got marked cervical motion tenderness. Uterine tenderness. No significant discharge that I can see. Extremities without cyanosis clubbing edema. No calf tenderness. She has no femoral adenopathy or abnormality. Neurologic exam is intact. Motion all E slightly anxious but otherwise normal. Objective Labs Result Diagrams: 02/16/18 17:03 02/16/18 17:03 Labs: Laboratory Results - last 24 hr 02/16/18 02/16/18 17:03 17:03 WBC 9.0 RBC 3.78 L Hgb 11.5 L Hct 33.7 L MCV 89.2 MCH 30.5 MCHC 34.2 RDW 14.7 Plt Count 218 Neut % (Auto) 80.5 H Lymph % (Auto) 12.6 L [place] % (Auto) 6.0 Eos % (Auto) 0.5 L Baso % (Auto) 0.4 Neut # (Auto) 7300 H Sodium 139 Potassium 3.9 Chloride 105 Carbon Dioxide 24 BUN 14 Creatinine 0.60 Estimated GFR > 60.0 BUN/Creatinine Ratio 23.3 H Glucose 81 Calcium 8.7 Total Bilirubin 0.3 AST 27 ALT 33 Alkaline Phosphatase 98 Total Protein 6.3 Albumin 3.5 Globulin 2.8 Albumin/Globulin Ratio 1.3 Assessment & Plan Plan: Assessment/Plan Narrative: Pelvic pain. Appears to be infected uterus. Quite tender. I do not think it's appendix. Unlikely to be a clot but potentially pelvic thrombosis. White counts not that elevated but certainly seems to be infected. Will begin antibiotics. Will re-evaluate in a.m.. As may need ultrasound depending on how she responds. IV morphine for pain control. Dehydration. Mild. IV hydration and follow. Anxiety. Pretty stable. Will follow. History of recent and SCD. Pump for breast needs. Baby will be available for care. Disposition. Will be here at least 2-3 days. Expect will not need any further care will see how things go. Depends on response to treatment. Quality VTE Deep Vein Thrombosis/Pulmonary Embolism Present on Admission: No
[2018-02-16] MEDS: LACTATED RINGERS 1,000 ML 125 ML IV (17:38)
[2018-02-16] MEDS: AMPICILLIN/SULBACTAM 3 GM 3 GM in SODIUM CHLORIDE 0.9% 100 ML IV ×2 (17:53→23:07)
[2018-02-16 20:27] VITALS: BP 107/60; RESP 16; TEMP 36.2; O2SAT 100
[2018-02-16 23:00] VITALS: O2SAT 96
[2018-02-16 23:35] VITALS: BP 119/70; PULSE 94; RESP 16; TEMP 36.7; O2SAT 100
[2018-02-17] VITALS (8 sets, daily range): BP systolic 94–106; BP diastolic 43–65; PULSE 70–90; RESP 15–16; TEMP 36.5–36.7; O2SAT 96–100
[2018-02-17 05:38] LABS: Add Manual Diff / Slide Review NO; Basophils Percent Auto 0.4 % (0-2); Hematocrit 30.5 % (36-46); Hemoglobin 10.4 g/dL (12.0-16.0); Lymphocytes Percent Auto 20.3 % (25-40); Mean Corpuscular HGB Conc 34.2 % (30-36); Mean Corpuscular Hemoglobin 30.4 PG (26-34); Mean Corpuscular Volume 88.8 fL (80-100); Monocytes Percent Auto 10.9 % (3-14); Neutrophils Absolute Auto 4900 /uL (3000-5900); Neutrophils Percent Auto 67.4 % (50-75); Platelet Count 225 X10^3/uL (150-400); Red Blood Cell Count 3.43 X10^6/uL (4.0-5.2); Red Cell Distribution Width 14.5 % (11.6-14.8); White Blood Cell Count 7.3 X10^3/uL (4.5-11.0)
[2018-02-17] MEDS: AMPICILLIN/SULBACTAM 3 GM 3 GM in SODIUM CHLORIDE 0.9% 100 ML IV ×3 (05:41→16:52)
[2018-02-17 05:43] LABS: BUN Creatinine Ratio 13.3 (6-22); Blood Urea Nitrogen 8 mg/dL (7-17); Carbon Dioxide 26 mmol/L (22-32); Chloride 103 mmol/L (98-107); Estimated Glomerular Filt Rate > 60.0 mL/min (>60); Glucose 106 mg/dL (70-100); HEMOLYSIS < 15 (0-50); Potassium 3.6 mmol/L (3.4-5.1); Sodium 136 mmol/L (137-145)
[2018-02-17] MEDS: LACTATED RINGERS 1,000 ML 125 ML IV ×2 (05:43→14:47)
[2018-02-17] MEDS: MORPHINE PCA 30 MG/30 ML PCA.VIAL IV ×3 (06:49→23:02)
--- NOTE | 2018-02-17 07:45 | PC.NURSE ---
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 When asked how she rates the pain she said about a 4-5/10. I explained how to and when to use the [employer]IC PL[employer] WORKER pump. Pt at times hunches over and appears to have bad stomach pain that comes in waves. and baby at bedside. Clear liquid diet continued. Voiding appropriately. ABX and IVF continued.
--- NOTE | 2018-02-17 10:32 | P.PN_ITS ---
Subjective Date Patient Seen: 02/17/18 Time Patient Seen: 10:28 Interval history: Patient feeling remarkably better today. 50% or more less pain. No nausea vomiting. No urinary pain. No other changes. Mostly feeling better pain less anxious. Pain is well controlled. Exam Vital Signs (past 8 hours): - 02/17/18 06:45 02/17/18 07:00 02/17/18 08:19 Temperature 97.7 F 98 F Pulse Rate 73 82 Respiratory Rate 16 15 Blood Pressure 94/43 L 106/62 Pulse Oximetry 98 99 99 Oxygen Delivery Method Room Air Oxygen Flow Rate 0 Narrative Exam Narrative: Alert less anxious female in no acute distress. Lungs are clear. Heart regular rate and rhythm. Abdomen is soft positive bowel sounds. Still has moderate lower quadrant tenderness but no rebound today. No masses. Extremities are normal. Objective Labs Result Diagrams: 02/17/18 05:19 02/17/18 05:19 Labs: Laboratory Results - last 24 hr 02/16/18 02/16/18 02/17/18 17:03 17:03 05:19 WBC 9.0 7.3 RBC 3.78 L 3.43 L Hgb 11.5 L 10.4 L Hct 33.7 L 30.5 L MCV 89.2 88.8 MCH 30.5 30.4 MCHC 34.2 34.2 RDW 14.7 14.5 Plt Count 218 225 Neut % (Auto) 80.5 H 67.4 Lymph % (Auto) 12.6 L 20.3 L [place] % (Auto) 6.0 10.9 Eos % (Auto) 0.5 L 1.0 L Baso % (Auto) 0.4 0.4 Neut # (Auto) 7300 H 4900 Sodium 139 Potassium 3.9 Chloride 105 Carbon Dioxide 24 BUN 14 Creatinine 0.60 Estimated GFR > 60.0 BUN/Creatinine Ratio 23.3 H Glucose 81 Calcium 8.7 Total Bilirubin 0.3 AST 27 ALT 33 Alkaline Phosphatase 98 Total Protein 6.3 Albumin 3.5 Globulin 2.8 Albumin/Globulin Ratio 1.3 02/17/18 05:19 WBC RBC Hgb Hct MCV MCH MCHC RDW Plt Count Neut % (Auto) Lymph % (Auto) [place] % (Auto) Eos % (Auto) Baso % (Auto) Neut # (Auto) Sodium 136 L Potassium 3.6 Chloride 103 Carbon Dioxide 26 BUN 8 Creatinine 0.60 Estimated GFR > 60.0 BUN/Creatinine Ratio 13.3 Glucose 106 H Calcium 8.0 L Total Bilirubin AST ALT Alkaline Phosphatase Total Protein Albumin Globulin Albumin/Globulin Ratio Assessment & Plan Plan: Assessment/Plan Narrative: Pelvic pain. Appears to be probably endometriosis. Much improved. Not enough to discontinue IV antibiotics so. White counts improved was really not that elevated. No fever. Will continue IV antibiotics may be of the discontinuing placed on p.o. tomorrow depending on response. Will increase diet to full. Discussed with both her and her mom. Dehydration. Mild. Continue IV hydration for now. Anemia. Probably secondary to blood loss secondary to her delivery. I suspected that a little lower because of IV hydration. No evidence of significant bleeding. Will follow. History of anxiety. Stable at this time. History of recent vaginal delivery. Will continue pump and baby available. Disposition. May be able to switch to oral tomorrow depending on how she does. We will have to re-evaluate at that time. Maybe another 48 hr of IV antibiotics. Both her mom questions were answered. Agrees with plan Quality VTE Deep Vein Thrombosis/Pulmonary Embolism Present on Admission: No
[2018-02-17] MEDS: ENOXAPARIN 40 MG/0.4 ML SYRINGE SUBCUT (11:04)
--- NOTE | 2018-02-17 16:05 | CM.IDA ---
DCP Assessment Note: Pt is a 32 yo female, resident of [place]. Pt admitted for likely endometriosis. Dr Mckeon following. Pt's PCP is Dr Pozo; Insurance is [place] [employer]. Reviewed chart and spoke w/RN Cassi throughout the day. 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 RN Cassi indicates pt has supportive family and likely pt will return home w/no barriers to safe DC home when cleared. CM team will remain available in case DC needs or concerns arise. Following. PORTIA Neff Discharge Planning/Care Management CM Discharge Assessment Start: 02/17/18 08:36 Freq: Status: Active Protocol: Document 02/17/18 08:36 ADI (Rec: 02/17/18 08:40 ADI [id number]) Discharge Planning Assessment Assigned Applications Development Consultant ADI History Provided By Patient Medical Record Has Patient been admitted in last 30 No days? Is this patient on Medicare? No Prior Living Arrangements House Household Members spouse family children Type of transporation used prior to Drives own vehicle admit Independent with ADL's Yes Is patient alert and oriented? Yes Caregiver for Another Yes: 7 days Referrals Initiated None needed Comment Likely, pending hospital course Discharge Plan Home Transportation Arrangement Family Additional Comment Likely return home w/ supportive family pending hospital course. Pt w/ h/o anxiety and Benzo abuse. No reported problems during or delivery, healthy baby delivered one week ago. baby rooming in w/mom. Review Status In Process Next Review Type Discharge Review
[2018-02-18] VITALS (8 sets, daily range): BP systolic 91–116; BP diastolic 46–67; PULSE 58–84; RESP 14–16; TEMP 35.9–36.6; O2SAT 98–100
[2018-02-18] MEDS: AMPICILLIN/SULBACTAM 3 GM 3 GM in SODIUM CHLORIDE 0.9% 100 ML IV ×4 (00:30→20:40)
[2018-02-18 05:38] LABS: Add Manual Diff / Slide Review NO; Basophils Percent Auto 0.6 % (0-2); Eosinophils Percent Auto 2.4 % (2-4); Hematocrit 31.5 % (36-46); Hemoglobin 10.5 g/dL (12.0-16.0); Lymphocytes Percent Auto 32.1 % (25-40); Mean Corpuscular HGB Conc 33.3 % (30-36); Monocytes Percent Auto 10.8 % (3-14); Neutrophils Absolute Auto 2800 /uL (3000-5900); Neutrophils Percent Auto 54.1 % (50-75); Platelet Count 219 X10^3/uL (150-400); Red Cell Distribution Width 14.5 % (11.6-14.8); White Blood Cell Count 5.1 X10^3/uL (4.5-11.0)
[2018-02-18 05:54] LABS: BUN Creatinine Ratio 8.3 (6-22); Blood Urea Nitrogen 5 mg/dL (7-17); Calcium 8.6 mg/dL (8.4-10.2); Carbon Dioxide 33 mmol/L (22-32); Chloride 105 mmol/L (98-107); Estimated Glomerular Filt Rate > 60.0 mL/min (>60); Glucose 90 mg/dL (70-100); HEMOLYSIS < 15 (0-50); Potassium 3.9 mmol/L (3.4-5.1); Sodium 143 mmol/L (137-145)
[2018-02-18] MEDS: MORPHINE PCA 30 MG/30 ML PCA.VIAL IV ×3 (06:22→23:08)
--- NOTE | 2018-02-18 08:51 | PM.PN.1 ---
Subjective Date Patient Seen: 02/18/18 Time Patient Seen: 08:02 Interval history: Patient feels better than on admission in terms of her pelvic pain and no fever white count is normalized and hematocrit is good vital signs are good but this morning over the last few hours she has developed some progressive nausea. 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 I had not had any nausea with that over the prior 36 hr. No increased bleeding definite decrease in terms of abdominal pain nausea worsens no urinary changes no shortness of breath cough or chest pain Exam Vital Signs (past 8 hours): - 02/18/18 03:40 02/18/18 08:00 Temperature 97.8 F 96.9 F L Pulse Rate 66 79 Respiratory Rate 16 16 Blood Pressure 92/46 L 116/64 Pulse Oximetry 100 99 Oxygen Delivery Method Room Air Oxygen Flow Rate 0 Narrative Exam Narrative: Alert and oriented x3 Lungs clear to auscultation percussion Cardiovascular shows regular rate and rhythm without murmur Abdomen soft no mass lower abdominal tenderness but definitely improved from before abdomen is soft the even in the lower abdomen Neck without thyromegaly or adenopathy Skin without rashes or inflammation Neuro intact symmetrical to sensory motor and speech is clear Objective Labs Result Diagrams: 02/18/18 05:18 02/18/18 05:18 Labs: Laboratory Results - last 24 hr 02/18/18 02/18/18 05:18 05:18 WBC 5.1 RBC 3.50 L Hgb 10.5 L Hct 31.5 L MCV 90.0 MCH 30.0 MCHC 33.3 RDW 14.5 Plt Count 219 Neut % (Auto) 54.1 Lymph % (Auto) 32.1 [place] % (Auto) 10.8 Eos % (Auto) 2.4 Baso % (Auto) 0.6 Neut # (Auto) 2800 L Sodium 143 Potassium 3.9 Chloride 105 Carbon Dioxide 33 H BUN 5 L Creatinine 0.60 Estimated GFR > 60.0 BUN/Creatinine Ratio 8.3 Glucose 90 Calcium 8.6 Assessment & Plan Plan: Assessment/Plan Narrative: Assessment 1. Endometritis. Patient feels better but I do not think she is quite well enough yet to discontinue IV antibiotics and pain control. Will keep those going for today anticipate she may make enough improvement to go tomorrow. Assessment 2 nausea this is a fairly new development this morning again abdomen exam is benign could be medication reaction bulky meds going and add Zofran at this point. Assessment 3. On clear liquid diet will think we can advance that today. Assessment for think patient is over hydrated at this point frequent going over for voiding will lock IV. Quality VTE Deep Vein Thrombosis/Pulmonary Embolism Present on Admission: No
[2018-02-18] MEDS: ENOXAPARIN 40 MG/0.4 ML SYRINGE SUBCUT (09:34)
[2018-02-18] MEDS: ONDANSETRON 4 MG/2 ML INJ IV (09:35)
[2018-02-18] MEDS: ACETAMINOPHEN 325 MG TABLET 650 MG PO (14:31)
--- NOTE | 2018-02-18 14:46 | PC.NURSE ---
shift note met with pt at start of shift. Spouse and at bedside. Pt complains of mild abdominal pain. 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 Provided IV zofran for complaint of nausea. Pt stated relief. Breastmilk stored in [facility] pt's fridge. BP runs low, asymptomatic, stable. Encouraged fluids.
[2018-02-19] MEDS: AMPICILLIN/SULBACTAM 3 GM 3 GM in SODIUM CHLORIDE 0.9% 100 ML IV ×3 (00:20→12:06)
[2018-02-19] MEDS: ACETAMINOPHEN 325 MG TABLET 650 MG PO ×2 (01:24→08:00)
[2018-02-19 04:00] VITALS: BP 90/41; PULSE 99; RESP 16; TEMP 36.1; O2SAT 98
[2018-02-19] MEDS: SODIUM CHLORIDE 0.9% 250 ML 21 ML IV (05:07)
[2018-02-19 05:59] LABS: Add Manual Diff / Slide Review NO; Basophils Percent Auto 0.7 % (0-2); Eosinophils Percent Auto 2.8 % (2-4); Hematocrit 28.6 % (36-46); Hemoglobin 9.8 g/dL (12.0-16.0); Mean Corpuscular HGB Conc 34.1 % (30-36); Mean Corpuscular Hemoglobin 30.4 PG (26-34); Mean Corpuscular Volume 89.1 fL (80-100); Monocytes Percent Auto 11.5 % (3-14); Neutrophils Absolute Auto 1700 /uL (3000-5900); Platelet Count 221 X10^3/uL (150-400); Red Cell Distribution Width 14.3 % (11.6-14.8)
[2018-02-19] MEDS: MORPHINE PCA 30 MG/30 ML PCA.VIAL IV (06:10)
[2018-02-19 06:13] VITALS: O2SAT 98
[2018-02-19 06:14] LABS: Alanine Aminotransferase 43 IU/L (9-52); Albumin 2.8 g/dL (3.5-5.0); Albumin Globulin Ratio 1.1 (1.0-2.8); Alkaline Phosphatase 74 U/L (38-126); Aspartate Aminotransferase 32 IU/L (14-36); BUN Creatinine Ratio 12.9 (6-22); Bilirubin Total 0.1 mg/dL (0.2-1.3); Blood Urea Nitrogen 9 mg/dL (7-17); Calcium 8.4 mg/dL (8.4-10.2); Carbon Dioxide 32 mmol/L (22-32); Chloride 103 mmol/L (98-107); Estimated Glomerular Filt Rate > 60.0 mL/min (>60); Globulin 2.5 g/dL (1.7-4.1); Glucose 86 mg/dL (70-100); HEMOLYSIS < 15 (0-50); Potassium 4.2 mmol/L (3.4-5.1); Sodium 139 mmol/L (137-145); Total Protein 5.3 g/dL (6.3-8.2)
[2018-02-19] MEDS: ENOXAPARIN 40 MG/0.4 ML SYRINGE SUBCUT (07:59)
[2018-02-19 08:00] VITALS: BP 124/69; PULSE 64; RESP 16; TEMP 36.5; O2SAT 100
--- NOTE | 2018-02-19 09:29 | PM.DS.1 ---
History of Present Illness Date Patient Seen: 02/19/18 Time Patient Seen: 09:29 Chief complaint: ABD PAIN Narrative: See H and P, admitted 1 week for severe and persistent abdominal pain. Presumed endometritis. Discharge Providers Date of admission: 02/16/18 15:56 Primary care physician: Roz Pozo MD Discharge provider: Selvin Ramirez MD Summary Discharge Diagnosis: Endometritis Seven days Hospital Course: Otherwise healthy young woman with 7 days had had an uneventful course but developed persistent severe pain in the low pelvic area on the morning prior to admission. Evaluated and thought to have endometritis so admitted placed on IV antibiotics and with good pain control. Somewhat improved within a couple of days but then yesterday morning developed some rather persistent emesis so was kept 1 more day. The worst of the pain is better this morning she is no longer nauseous does not feel entirely healthy but does feel like she is ready for home. Status at Discharge Cognitive/behavioral status at discharge: Normal Functional status at discharge: independent ambulation Time Spent with Patient Greater than 30 minutes Exam Vital Signs (past 8 hours): - 02/19/18 04:00 02/19/18 06:13 02/19/18 08:00 Temperature 96.9 F L 97.7 F Pulse Rate 99 H 64 Respiratory Rate 16 16 Blood Pressure 90/41 L 124/69 H Pulse Oximetry 98 98 100 Oxygen Delivery Method Room Air Oxygen Flow Rate 0 Narrative Exam Narrative: Aroused from sleep but then awake and appropriate no obvious distress. HEENT unremarkable neck is benign chest is clear heart is regular rate and rhythm without murmur abdomen is soft and somewhat tender in the lower pelvic area otherwise unremarkable with normal active bowel tones. Extremities benign without edema neurologically nonfocal Objective Labs Result Diagrams: 02/19/18 05:32 02/19/18 05:32 Labs: Laboratory Results - last 24 hr 02/19/18 02/19/18 05:32 05:32 WBC 4.0 L RBC 3.20 L Hgb 9.8 L Hct 28.6 L MCV 89.1 MCH 30.4 MCHC 34.1 RDW 14.3 Plt Count 221 Neut % (Auto) 42.0 L Lymph % (Auto) 43.0 H [place] % (Auto) 11.5 Eos % (Auto) 2.8 Baso % (Auto) 0.7 Neut # (Auto) 1700 L Sodium 139 Potassium 4.2 Chloride 103 Carbon Dioxide 32 BUN 9 Creatinine 0.70 Estimated GFR > 60.0 BUN/Creatinine Ratio 12.9 Glucose 86 Calcium 8.4 Total Bilirubin 0.1 L AST 32 ALT 43 Alkaline Phosphatase 74 Total Protein 5.3 L Albumin 2.8 L Globulin 2.5 Albumin/Globulin Ratio 1.1 Discharge Plan Discharge Plan Patient Disposition: Home, Self-Care Discharge Med Rec/Prescriptions Prescriptions: New amoxicillin-pot clavulanate 875-125 mg tablet 1 tab PO BID Qty: 14 RF: 0 Continue Iron (ferrous sulfate) 324 mg 1 tab PO DAILY RF: 0 PNV #[id number] 1 tab PO DAILY RF: 0 ibuprofen 600 mg Tablet 600 mg PO Q6HR PRN (Reason: Pain, Mild (1-3)) Qty: 90 RF: 1 docusate sodium 250 mg Capsule 250 mg PO DAILY Qty: 60 RF: 1 Follow up/Referrals: Roz Pozo MD [Primary Care Provider] - 3-5 Days Provider Discharge Instructions Diet: Diet as Tolerated Wound Care Report to your healthcare provider any signs of infection, such as:: chills, fever, night sweats, increased pain and unusual drainage Discharge Data Primary Care Provider: Roz Pozo Attending Provider: Rene Mckeon Admit Date/Time: 02/16/18 15:56 Quality VTE Deep Vein Thrombosis/Pulmonary Embolism Present on Admission: No
--- NOTE | 2018-02-19 12:24 | CM.DPC ---
DCP Discharge Home Per MD, pt is medically stable to d/c home today with no identified barriers to discharge. Per RN, pt independent and no concerns at this time. Plan: Patient to d/c home today with supportive family and no SW needs at this time. PORTIA Valenzuela
== END 2018-02-19 12:55 | disposition home or self-care (01) | DRG 561 ==
PROVIDERS: Family Medicine; Admitting Provider Family Medicine; PCP Family Medicine; Visit Provider Family Medicine
DX: O86.12 Endometritis following delivery (principal); N71.9 Inflammatory disease of uterus, unspecified; E86.0 Dehydration; F41.9 Anxiety disorder, unspecified; D62 Acute posthemorrhagic anemia
CPT/HCPCS: 36415; 80048; 80053; 85025; 87040; 87086; J0295; J1650; J2405

== ENCOUNTER 2018-06-30 07:47 | Day surgery (SDC) | payer OTHER, MEDICAID, SELFPAY ==
[2018-02-22 09:16] VITALS: BMI 34.2
[2018-06-30] VITALS (9 sets, daily range): BP systolic 95–122; BP diastolic 54–75; PULSE 58–92; RESP 16–22; TEMP 36.3–36.6; O2SAT 96–100; BMI 33.8
--- NOTE | 2018-06-30 | PATH_ITS ---
[facility] Accession Number: [id number] . 01 Material submitted: . CERVIX . 02 Diagnosis: Cervix, LEEP Biopsy: High-grade squamous intraepithelial lesion (HSIL/moderate dysplasia/SABINO-2) involves the 12 to 3 o'clock and 3 to 6 o'clock quadrants. Patchy regons of low-grade squamous intraepithelial lesion (LSIL/mild dysplasia/SABINO-1) are present in the 3 to 6 o'clock and 9 to 12 o'clock quadrants. Detached fragments of high-grade squamous intraepithelial lesion are present at the disrupted endocervical margin in the 3 to 6 o'clock quadrant. Dysplasia, favor low-grade squamous intraepithelial lesion, is present at the endocervical margin in the 9 to 12 o'clock quadrant. The intact ectocervical margin appears negative for dysplasia. Negative for invasive tumor. Changes consistent with previous instrumentation are present. [facility]/07/04/2018 . 02 Electronically signed: . Melissa Granados MD, Pathologist NPI- [id number] . 01 Gross description: . Received in formalin, labeled LEEP cone biopsy of cervix, stitch @ 12 o'clock, is a cervical LEEP cone biopsy (1.0 cm 12 o'clock to 6 o'clock, 1.0 cm 3 o'clock to 9 o'clock, 0.2 cm superficial to deep) oriented with a two-tailed black suture indicating 12 o'clock. The specimen is received opened at apparently 6 o'clock. The mucosa is gutiérrez-pink smooth and shiny. The resection margin is pale pedroza and finely granular. No nodules, masses or lesions are identified. Ink code: black-deep; blue-radial; orange-os/endocervical canal. Section code: Radially sectioned and entirely submitted clockwise from 12 o'clock-(A1) 12 o'clock to 3 o'clock; (A2) 3 o'clock to 6 o'clock; (A3) 6 o'clock to 9 o'clock; (A4) 9 o'clock to 12 o'clock. Note: This specimen was reviewed by Dr. Sundar Sandhu. ([id number]) /[facility] . 02 Pathologist provided ICD-10: N87.1 . 02 CPT . 302874 Performed at: 01 [facility] [address] [id number] MD Darvin Conway MD Phone: [phone] Performed at: 02 [facility] [id number] [place] [id number] MD Ashley Alamo MD Phone: [phone]
[2018-06-30] MEDS: LACTATED RINGERS 1,000 ML 42 ML IV (08:10)
--- NOTE | 2018-06-30 09:01 | SUR.PREOP ---
ibuprofen ordered but not given due to surgeon plan to admin tordol in or. dr barraza made aware and asked to hold ibuprofen
--- NOTE | 2018-06-30 09:07 | PM.PREOP ---
Pre-operative Note Interval Note Pre-op Check: Yes History & Physical exam performed today by Physician Changes: No
--- NOTE | 2018-06-30 09:07 | PM.HP.1 ---
History of Present Illness Date Patient Seen: 06/30/18 Time Patient Seen: 09:07 Chief complaint: [id number] Narrative: Patient is a 33-year-old 2 para 1 with SABINO 2-3 of the cervix by colposcopic biopsy Patient History Medical History Endometritis (Acute) Group beta Strep positive (Acute) History of benzodiazepine use (Acute) Pelvic pain (Acute) Recent childbirth (Acute ~01/2018) ADHD (attention deficit hyperactivity disorder) (Chronic) Acne (Chronic 1988) Anxiety (Chronic 2005) Chronic headaches (Chronic 2012) Depression (Chronic 2000) Vitamin D deficiency (Chronic) Bipolar disorder (Suspected) Benzodiazepine abuse (Resolved) Surgical History No history of previous surgery (Resolved) Family & Social History Social History: household members spouse,family,children,other Safety & Behavioral: Feels Safe in Current Yes Environment Suicide Plan Description No Plan Tobacco & Substance use: Tobacco type cigarettes Smoking Status Former smoker alcohol intake current alcohol intake frequency holiday/special occasion Substance Use Type does not use Meds Home Medications Medication Instructions Recorded Confirmed Type sertraline 100 mg PO DAILY 06/30/18 06/30/18 History Allergies Allergy/AdvReac Type Severity Reaction Status Date / Time naproxen Allergy Mild Rash Verified 06/24/18 10:35 Exam Vital Signs (past 8 hours): - 06/30/18 08:07 Temperature 97.3 F L Pulse Rate 92 H Respiratory Rate 18 Blood Pressure 122/75 Pulse Oximetry 97 Oxygen Delivery Method Room Air Narrative Exam Narrative: HEENT: No thyromegaly, no anterior cervical or supraclavicular lymphadenopathy. Lungs:Clear to auscultation bilaterally, no wheezes. Cardiovascular: Regular rate and rhythm, no murmurs, rubs, or gallops. Abdomen: No scars. No hepatosplenomegaly. No masses palpable. External genitalia: Normal Vagina: Normal Cervix: Normal Bimanual exam: 6 Week size uterus. Mobile. Rectal: No masses Assessment & Plan (1) Severe dysplasia of cervix (SABINO III): Current visit: Yes Status: Acute Plan: Assessment/Plan Narrative: Assessment: 33-year-old 2 para 1 with SABINO 2-3 of the cervix Plan: LEEP cone biopsy of the cervix The risks, benefits, and alternatives to the procedure were explained to the patient. The risks including bleeding, infection, and weakening of the cervix with a future .
[2018-06-30] MEDS: POTASSIUM IODIDE/IODINE 473 ML SOLUTION TOP (09:23)
--- NOTE | 2018-06-30 09:30 | SUR.OPER ---
Lithotomy on padded OR bed, head on pillow, arms secured on padded arm boards at <90 degrees abduction. Legs secured in padded yellow fins stirrups.
--- NOTE | 2018-06-30 09:43 | P.OP_ITS ---
Operative Date/Time/Diagnoses Date of procedure: 06/30/18 Time of procedure: 09:37 Pre-op diagnosis: SABINO 2-3 of the cervix Post-op diagnosis: same Procedure: Procedures Operation Date: 06/30/18 08:45 <No data on this case meets the specified criteria> Indications: SABINO 2-3 by colposcopic biopsy Surgeon: Ronit Burgos Anesthesia Type: General (LMA) Operative Notes Findings: Lugol's light area at 12 o'clock extending into the endocervical canal Closure Type: not applicable Specimen(s): other (LEEP cone biopsy of the cervix, suture at 12 o'clock) Estimated blood loss (mL): 5 Blood products transfused: none Procedure in detail: After informed consent was obtained, patient was taken to the operating room where she was placed in the dorsal supine position. After adequate LMA general anesthesia was achieved, she was placed in the dorsal lithotomy position, and prepped and draped in the usual sterile fashion. A time -out was performed. A plastic coated bivalve speculum was placed into the vagina and a plastic coated single-tooth tenaculum was placed on the anterior lip of the cervix. The Mirena IUD strings were placed up into the endocervical canal. The cervix was coated with Lugol solution. There was a Lugol's light area at the 12 o'clock position in the endocervical canal. Using the small loop, and settings at 60 cut and 40 cautery, a LEEP was performed from the 1:00 to 11:00 position including the 12:00 p.m. Lugol's light area. Hemostasis was achieved using the Bovie. The Mirena IUD strings were brought down from the endocervical canal. The plastic coated single-tooth tenaculum was removed from the anterior lip of the cervix. The plastic coated bivalve speculum was removed from the vagina. Sponge, lap, and instrument counts were correct x2. The patient tolerated the procedure well, and was taken to PACU in stable condition. Complications: none Post-operative Condition: stable Disposition: PACU Plan for aftercare: Home after recovery
--- NOTE | 2018-06-30 09:58 | SUR.PHASEI ---
pt gradually awake, no nausea no pain follows commands.
== END 2018-06-30 10:42 | disposition home or self-care (01) ==
PROVIDERS: PCP Family Medicine; Visit Provider Obstetrics & Gynecology
PROC: 0UBC7ZZ Excision of Cervix, Via Natural or Artificial Opening (ICD-10-PCS; CPT 57522; principal; 2018-06-30 08:45)
DX: N87.1 Moderate cervical dysplasia (principal); F17.210 Nicotine dependence, cigarettes, uncomplicated
CPT/HCPCS: 57522; J1100; J1885; J2250; J2405; J2704; J3010

== ENCOUNTER → 2019-01-17 11:06 | Outpatient (CLI) | payer OTHER, MEDICAID, SELFPAY ==
[2018-02-22 09:16] VITALS: BMI 34.2
--- NOTE | 2019-01-17 | DI.US.S_ITS ---
PROCEDURE: US PELVIC COMPLETE INDICATIONS: EVALUATE PLACEMENT OF INTRAUTERINE DEVICE TECHNIQUE: Real-time scanning was performed of the pelvic organs, with image documentation. Additional endovaginal scanning was necessary due to incomplete visualization of the adnexal and endometrial structures by transabdominal scanning. COMPARISON: [facility], , PELVIC COMPLETE, 05/21/2010, 12:41. FINDINGS: Transabdominal scanning: Limited scanning through the kidneys shows no hydronephrosis. No pathologic free abdominal or pelvic fluid. Endovaginal scanning: Uterus: Uterus is normal in size at 7.3 x 4.8 x 3.0 cm. The endometrium measures 3.7 mm in combined thickness. Intrauterine device in expected position. Scattered endometrial echogenic foci likely related to retained blood products. Ovaries: Regressing physiologic cyst associated with the left ovary measuring 2.3 x 1.8 x 1.5 cm. Normal right ovary measured 2.1 x 2.0 x 1.9 cm. IMPRESSION: Intrauterine device in expected position. Dictated by: Robert Smiley [facility] Interpreted: Mary Trinidad MD on 01/17/2019 at 13:24 Approved by: Mary Trinidad M.D. on 01/17/2019 at 14:01
== END ==
PROVIDERS: PCP Family Medicine; Visit Provider Family Medicine
DX: Z30.431 Encounter for routine checking of intrauterine contraceptive device (principal); N83.292 Other ovarian cyst, left side
CPT/HCPCS: 76830; 76856

== ENCOUNTER 2019-10-01 00:12 | Emergency (ER) | payer OTHER, SELFPAY ==
[2018-02-22 09:16] VITALS: BMI 34.2
[2019-10-01 00:24] VITALS: BP 125/70; PULSE 83; RESP 20; TEMP 36.6; O2SAT 100; BMI 28.0
--- NOTE | 2019-10-01 00:26 | DI.RAD.S_ITS ---
PROCEDURE: XR CHEST 1V INDICATIONS: Shortness of breath TECHNIQUE: One view of the chest was acquired. COMPARISON: [facility], RG, XR CXR 2 VIEW, 08/07/2005, 10:02. [facility], CR, CHEST 2 VIEW, 06/07/2008, 19:23. [facility], CR, CHEST 1 VIEW, 12/07/2010, 23:10. FINDINGS: Surgical changes and devices: None. Lungs and pleura: On this semiupright portable chest examination, no large pneumothorax or large pleural effusions are seen. No focal infiltrates are seen. Mediastinum: Mediastinal contours appear normal. Heart size is normal. Bones and chest wall: No suspicious bony lesions. Overlying soft tissues appear unremarkable. IMPRESSION: Limited portable chest examination, without a significant cardiopulmonary abnormality identified. Note: No significant discrepancy from the preliminary report. Dictated by: Ric Levi M.D. on 10/01/2019 at 7:30 Approved by: Ric Levi M.D. on 10/01/2019 at 7:31
--- NOTE | 2019-10-01 00:27 | ED_ITS ---
HPI - General Adult General Chief complaint: Upper Respiratory Symptoms Stated complaint: cold symptoms, headache Time Seen by Provider: 10/01/19 00:22 Source: patient Mode of arrival: Ambulatory Limitations: no limitations History of Present Illness HPI narrative: 34-year-old female here for evaluation of cough, shortness of breath with chest congestion, and headache. She stated that her symptoms started approximately 48 hours ago. Have not worsened since then however was having some more severe chest congestion just this evening which prompted her to come to the emergency department. No fevers. Patient does work at [employer]. Patient stated that there were 2 other individuals at her place of employment that tested positive for COVID-19. Patient was concerned about this which prompted her to come the emergency department. Related Data Home Medications Medication Instructions Recorded Confirmed sertraline 100 mg PO DAILY 06/30/18 06/30/18 Previous Rx's Medication Instructions Recorded hydrocodone-acetaminophen [[place]] 1 tab PO Q6H #10 tab 06/30/18 Allergies Allergy/AdvReac Type Severity Reaction Status Date / Time naproxen Allergy Mild Rash Verified 06/24/18 10:35 Review of Systems Constitutional Constitutional: Reports fatigue, Denies fever(s) and Reports headache(s) ENT Ears, Nose, Mouth, and Throat: Reports headache(s) Cardiovascular Cardiovascular: Reports chest pain and Reports dyspnea Respiratory Respiratory: Reports chest congestion and Reports dyspnea Gastrointestinal Gastrointestinal: Denies abdominal pain, Denies nausea and Denies vomiting Musculoskeletal Musculoskeletal: Denies myalgias and Denies arthralgias Integumentary/Breasts Skin/Breast: Denies lesions and Denies rash Neurologic Neurologic: Denies behavioral changes and Reports headache(s) Psychiatric Psychiatric: Denies behavioral changes Endocrine Endocrine: Reports fatigue Hematologic/Lymphatic Hematologic/Lymphatic: Denies easy bleeding and Denies easy bruising Patient History Medical History Acne (Chronic 1988) ADHD (attention deficit hyperactivity disorder) (Chronic) Anxiety (Chronic 2005) Benzodiazepine abuse (Resolved) Bipolar disorder (Suspected) Chronic headaches (Chronic 2012) Depression (Chronic 2000) Endometritis (Acute) Group beta Strep positive (Acute) History of benzodiazepine use (Acute) Pelvic pain (Acute) Recent childbirth (Acute ~01/2018) Vitamin D deficiency (Chronic) Surgical History (Updated 02/25/18 @ 09:20 by Hannah Godwin) No history of previous surgery (Resolved) Family History Brother No problems noted. Sister No problems noted. Father No problems noted. Mother No problems noted. Social History household members: spouse, family, children and other Smoking Status: Former smoker alcohol intake: current Smoking Status: Former smoker alcohol intake frequency: holidays/special occasions only Substance Use Type: does not use Exam Initial Vital Signs Initial Vital Signs: Vital Signs Temperature 97.9 F 10/01/19 00:24 Pulse Rate 83 10/01/19 00:24 Respiratory Rate 20 10/01/19 00:24 Blood Pressure 125/70 10/01/19 00:24 Pulse Oximetry 100 10/01/19 00:24 Const General: cooperative, healthy appearing, comfortable and well developed Limitations: mental status not altered Resp Effort & Inspection: normal respiratory effort Cardio Rate: regular rate Skin Lesions: no lesions Rashes: no rashes Extrem General: normal to inspection Psych Appearance: grossly normal and well kempt Course Orders Ordered: ED Orders 10/01/19 00:26 XR chest 1V Stat 10/01/19 00:35 Influenza A & B (PCR) Stat Vital Signs Vital signs: Vital Signs - 8 hr 10/01/19 00:24 Temperature 97.9 F Pulse Rate 83 Respiratory Rate 20 Blood Pressure 125/70 Pulse Oximetry 100 Medical Decision Making Lab Data Lab results reviewed: Yes I reviewed the patient's lab results. Labs: Lab Results 10/01/19 Range/Units 00:35 Influenza A (RT-PCR) Flu a negative (NEGATIVE) Influenza B (RT-PCR) Flu b negative (NEGATIVE) Imaging Data Chest x-ray: Attestation: I personally reviewed and interpreted this imaging study as follows: My Impression: No focal consolidation No pneumonia MDM Narrative Medical decision making narrative: Nontoxic appearing, not hypoxic, afebrile. Chest x-ray not definitive for pneumonia. Flu is negative. Given her exposure to reportedly positive COVID -19 patient's she was tested for this. She was informed that she needed to self quarantine until her results returned which could be 5-7 days. Patient expressed understanding of this. We discussed return precautions. We will call her for the results of this testing. No i ndication for antibiotics. Discharge Plan Departure Patient Disposition: Home Clinical Impression: Cough Upper respiratory infection Qualifiers: URI type: unspecified URI Qualified Code(s): J06.9 - Acute upper respiratory infection, unspecified Instructions: DI for Viral Upper Respiratory Infection -- Adult Activity Restrictions/Additional Instructions: We did test you for COVID-19. This test can take upwards of 5-6 days to result. We will call you at the number that you provided us with the results of this test even if it is negative. Until then you do need to self quarantine and this includes avoiding contact with others and staying in your place of residence as much as possible. Also highly recommend that you wash your hands frequently. You can visit to the CDC web site for further information regarding this. Return to the emergency department for any new or worsening symptoms. Contact her primary provider for a follow-up. Prescriptions: No Action sertraline 100 mg Tablet 100 mg PO DAILY RF: 0 hydrocodone-acetaminophen [[place]] 5-325 mg tablet 1 tab PO Q6H Qty: 10 RF: 0 Referrals: Roz Pozo MD [Primary Care Provider] - Stand Alone Forms: Work Release Note
[2019-10-01 01:39] LABS: Influenza A - CEPHEID Flu A NEGATIVE (NEGATIVE); Influenza B - CEPHEID Flu B NEGATIVE (NEGATIVE)
[2019-10-01 02:06] VITALS: BP 116/72; PULSE 79; RESP 20; TEMP 36.5; O2SAT 100
[2019-10-05 10:25] LABS: COVID19 Sendout Not Detected (Not Detected)
== END 2019-10-01 02:06 | disposition home or self-care (01) ==
PROVIDERS: Emergency Provider Emergency Medicine; PCP Family Medicine
DX: Z20.828 Contact with and (suspected) exposure to other viral communicable diseases (principal); J06.9 Acute upper respiratory infection, unspecified; R05 Cough
CPT/HCPCS: 71045; 87502; 87635; 99283

== ENCOUNTER → 2021-05-27 15:33 | Outpatient (CLI) | payer OTHER, SELFPAY ==
[2018-02-22 09:16] VITALS: BMI 34.2
[2021-05-27 15:57] LABS: COVID19 -Nasal RAPID Negative (Negative)
== END ==
PROVIDERS: PCP Family Medicine; Referring Provider Physician Assistant; Visit Provider Physician Assistant
DX: J02.9 Acute pharyngitis, unspecified (principal); R05.9 Cough, unspecified; R09.81 Nasal congestion; R50.9 Fever, unspecified
CPT/HCPCS: 87635

== ENCOUNTER → 2021-06-14 11:17 | Outpatient (CLI) | payer OTHER, SELFPAY ==
[2018-02-22 09:16] VITALS: BMI 34.2
[2021-06-14 12:33] LABS: Influenza A - CEPHEID Flu A NEGATIVE (NEGATIVE); Influenza B - CEPHEID Flu B NEGATIVE (NEGATIVE)
[2021-06-14 12:39] LABS: COVID19 -Nasal RAPID Negative (Negative)
== END ==
PROVIDERS: PCP Family Medicine; Visit Provider Physician Assistant
DX: Z20.822 Contact with and (suspected) exposure to COVID-19 (principal); R68.89 Other general symptoms and signs
CPT/HCPCS: 87502; 87635

== ENCOUNTER → 2021-08-04 14:58 | Outpatient (CLI) | payer OTHER, SELFPAY ==
[2018-02-22 09:16] VITALS: BMI 34.2
--- NOTE | 2021-08-04 | DI.US.S_ITS ---
PROCEDURE: US ABDOMEN COMPLETE INDICATIONS: PAIN TECHNIQUE: Real-time scanning was performed of the abdominal and retroperitoneal organs, with image documentation. COMPARISON: [facility], , US ABDOMEN/RENAL AND/OR RETROPERITONEAL, 05/16/2004, 10:00. FINDINGS: Liver: The liver demonstrates mildly prominent size. The liver demonstrates generalized mildly increased echogenicity. This decreases ultrasound sensitivity for detection of hepatic masses. Gallbladder: No findings of gallstones or sludge are seen. The gallbladder wall is not thickened, measuring 3 mm or less. No specific pericholecystic fluid is seen. The sonographic Roach sign is negative. Biliary ducts: Intrahepatic bile ducts are non-dilated. Extrahepatic bile duct caliber measures 3 mm. Normal is 6-7 mm or less in diameter, or 10 mm or less post-cholecystectomy. Pancreas: Visualized portions of the pancreas are sonographically normal. Spleen: Spleen is normal in size and homogeneous in echotexture. Kidneys: Kidneys are normal in size and echotexture. Right kidney measures 11.6 cm long; left kidney measures 10.8 cm long. No hydronephrosis or nephrolithiasis. No solid masses. Aorta: Visualized aorta is normal in caliber at less than 3 cm. Iliacs: Proximal common iliac arteries are normal in caliber at less than 2.5 cm. IVC: Intrahepatic inferior vena cava is patent. Miscellaneous: No free abdominal fluid. IMPRESSION: The gallbladder demonstrates a normal sonographic appearance. No biliary dilatation is seen. Mildly enlarged fatty infiltrated liver. Dictated by: Ric Levi M.D. on 08/04/2021 at 15:22 Approved by: Ric Levi M.D. on 08/04/2021 at 15:23
== END ==
PROVIDERS: PCP Family Medicine; Referring Provider Family Medicine; Visit Provider Family Medicine
DX: R10.9 Unspecified abdominal pain (principal)
CPT/HCPCS: 76700

== ENCOUNTER → 2021-09-03 12:37 | Outpatient (CLI) | payer OTHER, SELFPAY ==
[2018-02-22 09:16] VITALS: BMI 34.2
[2021-09-03 13:25] LABS: COVID19 -Nasal RAPID Negative (Negative)
== END ==
PROVIDERS: PCP Family Medicine; Visit Provider Nurse Practitioner Family
DX: Z20.822 Contact with and (suspected) exposure to COVID-19 (principal)
CPT/HCPCS: 87635

== ENCOUNTER → 2024-05-09 09:54 | Outpatient (CLI) | payer OTHER, MEDICAID, SELFPAY ==
[2018-02-22 09:16] VITALS: BMI 34.2
== END ==
PROVIDERS: PCP Family Medicine; Visit Provider Physician Assistant
DX: J02.9 Acute pharyngitis, unspecified (principal)
CPT/HCPCS: 87070; 87880

== ENCOUNTER → 2025-05-19 13:44 | Outpatient (CLI) | payer OTHER, SELFPAY ==
[2018-02-22 09:16] VITALS: BMI 34.2
--- NOTE | 2025-05-19 13:46 | DI.CT.S_ITS ---
PROCEDURE: CT SINUS SCREEN WO CON INDICATIONS: Recurrent sinusitis TECHNIQUE: Noncontrast 3.0 mm axial images acquired from the frontal sinuses to the mid- sella, with coronal and sagittal reformats. For radiation dose reduction, the following was used: automated exposure control, adjustment of mA and/or kV according to patient size. COMPARISON: None. FINDINGS: Image quality: Excellent. Sinuses: Mild mucosal thickening with superimposed mucous retention cyst versus polyps are present in the maxillary sinuses. No fluid levels. Otherwise, scattered minimal mucosal thickening. Ostiomeatal Complexes: Ostiomeatal complexes are patent. Miscellaneous: Visualized intra-orbital contents are normal. No reyna bullosa or paradoxical turbinate curvature. Leftward nasal septal deviation. IMPRESSION: Mucosal thickening/mucous retention cyst versus polyps most prominent in the maxillary sinuses. Dictated by: Mary Trinidad M.D. on 05/21/2025 at 9:36 Approved by: Mary Trinidad M.D. on 05/21/2025 at 9:37
== END ==
LOC: CT 13:45
PROVIDERS: PCP Family Medicine; Referring Provider Family Medicine; Visit Provider Family Medicine
DX: J32.9 Chronic sinusitis, unspecified (principal)
CPT/HCPCS: 70486